=== PATIENT | female | born 1955 | race Caucasian/White ===

== ENCOUNTER 2024-09-20 06:27 | Day surgery (SDC) | payer OTHER, SELFPAY ==
[2024-09-20 07:43] LABS: Glucose - Point of Care 224 mg/dl (70-99)
== END 2024-09-20 09:56 | disposition home or self-care (01) ==
LOC: GI 06:27
PROVIDERS: ATTENDING PHYSICIAN Internal Medicine; FAMILY PHYSICIAN Family Medicine
DX: Z12.11 Encounter for screening for malignant neoplasm of colon (principal); K55.20 Angiodysplasia of colon without hemorrhage; D12.4 Benign neoplasm of descending colon; Z86.0100 Personal history of colon polyps, unspecified; D12.3 Benign neoplasm of transverse colon
CPT/HCPCS: 45385; 45380; 88305; 82962; 93005